=== PATIENT | male | born 1985 | race African-American/Black ===

== ENCOUNTER 2018-01-14 02:21 | Emergency (ER) | payer OTHER ==
[2018-01-14] MEDS ORDERED: IBUPROFEN 400 MG TABLET (FP) PO ONE ×2 (03:18→03:44)
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
[2018-01-14 03:37] VITALS: BMI 34.9
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
[2018-01-14 04:53] VITALS: BP 130/89; PULSE 98; TEMP 98.6
== END 2018-01-14 04:00 | disposition home or self-care (01) ==
LOC: JER 02:21
DX: S06.0X0A Concussion without loss of consciousness, initial encounter (principal); G44.319 Acute post-traumatic headache, not intractable; Y00.XXXA Assault by blunt object, initial encounter; Y93.89 Activity, other specified; Y92.118 Other place in children's home and orphanage as the place of occurrence of the external cause; Y99.0 Civilian activity done for income or pay
CPT/HCPCS: 70450-TC; 99281-25

== ENCOUNTER 2018-12-28 18:25 | Emergency (ER) | payer OTHER ==
[2018-12-28 18:32] VITALS: BP 146/96; PULSE 72; TEMP 98; BMI 34.9
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
--- NOTE | 2018-12-28 18:59 | PDOC ---
History of Present Illness - General Chief Complaint: Eye Problem Stated Complaint: PINK EYE Time Seen by Provider: 12/28/18 18:28 History Source: Patient Exam Limitations: Clinical Condition - History of Present Illness Initial Comments: 12/28/18 19:21 Patient with no significant past medical history present with complaint of bilateral pinkeye with yellow discharge from bilateral eyes which started in the right eye yesterday and has moved to left side today. Denies blurry vision, change in vision. Denies trauma or injury to her eyes. Denies any sick contact Timing/Duration: 24 hours Past History - Past Medical History Allergies/Adverse Reactions: Allergies Allergy/AdvReac Type Severity Reaction Status Date / Time No Known Allergies Allergy Verified 12/28/18 18:32 Home Medications: Ambulatory Orders Ofloxacin 0.3% Ophth Soln [Ocuflox -] 2 drop OU Q6H 5 Days #1 bottle 12/28/18 COPD: No - Suicide/Smoking/Psychosocial Hx Smoking History: Never smoked Review of Systems - Review of Systems Able to Perform ROS?: Yes Is the patient limited Danish proficient: No Constitutional: No: Chills, Fever HEENTM: Yes: Symptoms Reported, See HPI, Eye Pain (b/l pink eye). No: Blurred Vision, Tearing, Recent change in vision, Double Vision, Cataracts, Ear Pain, Ocular Prothesis, Ear Discharge, Nose Pain, Nose Congestion, Tinnitus, Nose Bleeding, Hearing Loss, Throat Pain, Throat Swelling, Mouth Pain, Dental Problems, Difficulty Swallowing, Mouth Swelling, Other Respiratory: No: Symptoms reported Cardiac (ROS): No: Symptoms Reported ABD/GI: No: Symptoms Reported, Nausea, Vomiting Neurological: No: Symptoms reported, Headache, Dizziness All Other Systems: Reviewed and Negative *Physical Exam - Vital Signs Last Vital Signs Temp Pulse Resp BP Pulse Ox 98 F 72 18 146/96 99 12/28/18 18:28 12/28/18 18:28 12/28/18 18:28 12/28/18 18:28 12/28/18 18:28 - Physical Exam Comments: 12/28/18 19:23 GENERAL: Well developed, well nourished. Awake and alert. No acute distress. HEENT: Mildly injected right conjunctiva. Moderately injected left conjunctiva. No discharge from conjunctiva. Normocephalic, atraumatic. PERRLA, EOMI. Moist mucous membranes. Oropharynx is clear. NECK: Supple. Full ROM. CARDIOVASCULAR: Regular rate and rhythm. No murmurs, rubs, or gallops. Distal pulses are 2+ and symmetric. PULMONARY: No evidence of respiratory distress. Lungs clear to auscultation bilaterally. No wheezing, rales or rhonchi. MUSCULOSKELETAL Normal range of motion at all joints. SKIN: Warm and dry. Normal capillary refill. No rashes. No jaundice. NEUROLOGICAL: Alert, awake, appropriate. Gait is normal without ataxia. PSYCHIATRIC: Cooperative. Good eye contact. Appropriate mood General Appearance: Yes: Nourished, Appropriately Dressed. No: Apparent Distress Medical Decision Making - Medical Decision Making 12/28/18 19:22 Patient with no significant past medical history present with complaint of bilateral pinkeye with yellow discharge from bilateral eyes which started in the right eye yesterday and has moved to left side today. Denies blurry vision, change in vision. Denies trauma or injury to her eyes. Denies any sick contact Exam significant for moderately injected bilateral conjunctivae with left side more injected the right eye. No discharge from eye. Extraocular muscle intact. Symptoms likely conjunctivitis and patient be discharged home on ofloxacin eyedrops for 5 days with ophthalmology follow-up as needed. *DC/Admit/Observation/Transfer Diagnosis at time of Disposition: Conjunctivitis Qualifiers: Conjunctivitis type: acute Acute conjunctivitis type: unspecified Laterality: bilateral Qualified Code(s): H10.33 - Unspecified acute conjunctivitis, bilateral - Discharge Dispostion Disposition: HOME Condition at time of disposition: Stable Decision to Admit order: No - Prescriptions Prescriptions: Ofloxacin 0.3% Ophth Soln [Ocuflox -] 2 drop OU Q6H 5 Days #1 bottle - Referrals Referrals: Azael Mukherjee MD [Staff Physician] - - Patient Instructions Printed Discharge Instructions: DI for Conjunctivitis Additional Instructions: Take prescribed eyedrops as prescribed. Refrain from rubbing on the eye. Follow- up referred ophthalmology if no improvement in 3 days - Post Discharge Activity Forms/Work/School Notes: Back to Work
== END 2018-12-28 19:13 | disposition home or self-care (01) ==
LOC: JERFT 18:25
DX: H10.33 Unspecified acute conjunctivitis, bilateral (principal)
CPT/HCPCS: 99281-25

== ENCOUNTER 2019-02-11 17:55 | Emergency (ER) | payer OTHER ==
[2019-02-11 18:07] VITALS: BP 144/96; PULSE 63; TEMP 97.8; BMI 34.9
[2019-02-11] MEDS ORDERED: BACITRACIN 15 GM TUBE TOPICAL OINTMENT ONE (18:27)
--- NOTE | 2019-02-11 18:42 | PDOC ---
History of Present Illness - General Chief Complaint: Injury Stated Complaint: FINGER INJURY Time Seen by Provider: 02/11/19 18:21 History Source: Patient Exam Limitations: No Limitations Past History - Past Medical History Allergies/Adverse Reactions: Allergies Allergy/AdvReac Type Severity Reaction Status Date / Time No Known Allergies Allergy Verified 12/28/18 18:32 Home Medications: Ambulatory Orders Ofloxacin 0.3% Ophth Soln [Ocuflox -] 2 drop OU Q6H 5 Days #1 bottle 12/28/18 COPD: No - Immunization History Immunization Up to Date: Yes - Psycho Social/Smoking Cessation Hx Smoking History: Never smoked Information on smoking cessation initiated: No Hx Alcohol Use: No Drug/Substance Use Hx: No *Physical Exam - Vital Signs Last Vital Signs Temp Pulse Resp BP Pulse Ox 97.8 F 63 16 144/96 97 02/11/19 18:05 02/11/19 18:05 02/11/19 18:05 02/11/19 18:05 02/11/19 18:05 - Physical Exam General Appearance: No: Apparent Distress Extremity: positive: Other (Superficial skin tear along medial distal aspect of right thumb and a tiny abrasion along lateral distal aspect of right thumb, nail is intact, full range of motion of right thumb, no swelling or deformity noted) Integumentary: negative: Swelling, Ecchymosis, Bruising Neurologic: positive: Alert, Normal Mood/Affect ED Treatment Course - RADIOLOGY Radiology Studies Ordered: Category Date Time Status FINGER(S) RIGHT [RAD] Stat Radiology 02/11/19 18:26 Taken Medical Decision Making - Medical Decision Making 33-year-old male with no significant past medical history presents with right thumb injury while at work today. Patient accidentally got right thumb slammed into a door while closing it. Patient denies other trauma. Patient's last tetanus shot was in January 2019. Right thumb x-ray negative for fracture Site of abrasion covered with bacitracin Stable for discharge 02/11/19 18:40 Discharge - Discharge Information Problems reviewed: Yes Clinical Impression/Diagnosis: Abrasion of right thumb Qualifiers: Encounter type: initial encounter Qualified Code(s): S60.311A - Abrasion of right thumb, initial encounter Condition: Stable Disposition: HOME - Admission No - Additional Discharge Information Prescription Drug Monitoring Program (I-STOP) results: I-STOP not reviewed - Follow up/Referral Referrals: Derrell Sibley MD [Primary Care Provider] - - Patient Discharge Instructions Patient Printed Discharge Instructions: DI for Abrasion Additional Instructions: Thank you for choosing [facility]. It was a pleasure taking care of you. Your xray was negative for fracture You may apply Neosporin over site of abrasion twice a day Return to the Emergency Department if your symptoms worsen or persist or have other concerning symptoms. - Post Discharge Activity
== END 2019-02-11 18:51 | disposition home or self-care (01) ==
LOC: JERFT 17:55
DX: S60.311A Abrasion of right thumb, initial encounter (principal); W23.0XXA Caught, crushed, jammed, or pinched between moving objects, initial encounter; Y93.89 Activity, other specified; Y92.119 Unspecified place in children's home and orphanage as the place of occurrence of the external cause; Y99.0 Civilian activity done for income or pay
CPT/HCPCS: 73140-TC-RT-FY; 99281-25

== ENCOUNTER 2019-04-27 23:38 | Emergency (ER) | payer OTHER ==
[2019-04-27 23:46] VITALS: BP 150/105; PULSE 95; TEMP 98.1; BMI 77.0
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
[2019-04-28] MEDS ORDERED: ACETAMINOPHEN 325 MG TABLET (FP) PO ONE (02:27)
[2019-04-28] MEDS ORDERED: ACETAMINOPHEN 325 MG TABLET (FP) ONE ×2 (02:28→02:29)
== END 2019-04-28 02:37 | disposition home or self-care (01) ==
LOC: JER 23:38
DX: S09.92XA Unspecified injury of nose, initial encounter (principal); J34.89 Other specified disorders of nose and nasal sinuses; Y04.2XXA Assault by strike against or bumped into by another person, initial encounter; Y93.89 Activity, other specified; Y92.119 Unspecified place in children's home and orphanage as the place of occurrence of the external cause; Y99.0 Civilian activity done for income or pay
CPT/HCPCS: 99281-25